=== PATIENT | female | born 1990 | race Two or more races ===

== ENCOUNTER 2016-06-19 22:55 | Inpatient (IN) | payer BC, OTHER ==
[~2016-06-19] VITALS: Ht 157.5 cm; Wt 59.0 kg
[~2016-06-19 22:55] MED LIST: HYDR-971 PO; NAPR500T8 PO; PNV1TABL25 PO
[2016-06-19 23:25] LABS: BILIRUBIN,URINE NEGATIVE (NEG); GLUCOSE,URINE NEGATIVE (NEG); NITRITE,URINE NEGATIVE (NEG); PROTEIN,URINE NEGATIVE (NEG-TRACE)
[2016-06-19 23:26] LABS: NEG OBC UR NEG; POS OBC UR POS
[2016-06-19] MEDS ORDERED: ONDANSETRON PF 4 MG/2 ML VIAL. IV ONE (23:30)
[2016-06-19] MEDS ORDERED: MORPHINE SULFATE 4 MG/ML DISP.SYRIN. IV ONE (23:30)
[2016-06-19] MEDS ORDERED: IV NORMAL SALINE 500ML BAG 500 ML IV ONE (23:30)
[2016-06-19 23:31] LABS: RBC,URINE 0 /HPF (0-2)
[2016-06-19 23:32] LABS: BACTERIA,URINE FEW /HPF (0-FEW); SQUAMOUS EPITHELIAL CELL,UR MANY /LPF; WBC,URINE 20-40 /HPF (0-4)
[2016-06-19 23:37] LABS: BASO % 1 % (0-3); EOS % 1 % (0-3); HEMATOCRIT 40.1 % (36.0-47.0); HEMOGLOBIN 13.3 g/dL (12.0-15.5); LYMPH # 1.7 x10^3/uL (1.0-4.8); LYMPH % 29 % (24-48); MEAN CORPUSCULAR HEMOGLOBIN 29 pg (25-35); MEAN CORPUSCULAR HGB CONC 33 g/dL (31-37); MEAN CORPUSCULAR VOLUME 86 fL (79-100); MONO % 10 % (0-9); NEUT % 60 % (31-73); PLATELET COUNT 362 x10^3/uL (140-400); RED BLOOD COUNT 4.67 x10^6/uL (3.50-5.40); RED CELL DISTRIBUTION WIDTH 12.7 % (11.5-14.5); WHITE BLOOD COUNT 5.8 x10^3/uL (4.0-11.0)
[2016-06-19 23:47] LABS: CALCIUM 9.2 mg/dL (8.5-10.1); CREATININE 0.4 mg/dL (0.6-1.0); GFR 196.1; POTASSIUM 3.4 mmol/L (3.5-5.1)
[2016-06-19 23:53] LABS: ALBUMIN 3.8 g/dL (3.4-5.0); TOTAL BILIRUBIN 0.6 mg/dL (0.2-1.0); TOTAL PROTEIN 7.5 g/dL (6.4-8.2)
--- NOTE | 2016-06-19 23:57 | PHYS DOC ---
Past Medical History Past Medical History: Anxiety, Other Additional Past Medical Histor: GASTRITIS Past Surgical History: No Surgical History Alcohol Use: None Drug Use: None Adult General Chief Complaint Chief Complaint: ABDOMINAL PAIN HPI HPI This is a 25-year-old female who's had significant right upper quadrant pain and mild left upper quadrant pain for the last several days with multiple episodes of vomiting today. She denies any history of abdominal surgery. She states she had a normal bowel movement yesterday. She denies being . She states her last menstrual period was on 07 June and was normal. She denies any vaginal bleeding. She denies any dysuria or hematuria. She denies any fever or chills. Currently she rates her pain an 8 out of 10 all localized primarily to the right upper quadrant. She does not state anything makes it better or worse. She denies any significant PMH. Patient is in no acute distress at this time. Review of Systems Review of Systems Constitutional: Denies fever or chills [] Eyes: Denies change in visual acuity, redness, or eye pain [] HENT: Denies nasal congestion or sore throat [] Respiratory: Denies cough or shortness of breath [] Cardiovascular: No additional information not addressed in HPI [] GI: Has abdominal pain, denies nausea, denies vomiting, denies bloody stools or diarrhea [] : Denies dysuria or hematuria [] Musculoskeletal: Denies back pain or joint pain [] Integument: Denies rash or skin lesions [] Neurologic: Denies headache, focal weakness or sensory changes [] Endocrine: Denies polyuria or polydipsia [] Current Medications Current Medications Current Medications Medications (Trade) Dose Ordered Sig/Neal Start Time Stop Time Status Last Admin Dose Admin Morphine Sulfate 4 mg 4 mg PRN Q2HR PRN 06/20/16 00:45 06/21/16 00:44 UNV Ondansetron HCl (Zofran) 4 mg PRN Q8HRS PRN 06/20/16 00:45 06/21/16 00:44 UNV Ondansetron HCl 4 mg 4 mg 1X ONCE 06/19/16 23:30 06/19/16 23:31 DC 06/19/16 23:31 4 MG Sodium Chloride (Iv Sodium Chloride 0.9% 500ml Bag) 500 ml @ 500 mls/hr 1X ONCE 06/19/16 23:30 06/20/16 00:29 DC 06/19/16 23:35 500 MLS/HR Sodium Chloride (Iv Sodium Chloride 0.9% 1000ml Bag) 1,000 ml @ 125 mls/hr Q8H 06/20/16 00:35 06/21/16 00:34 UNV Allergies Allergies Allergies Coded Allergies Type Severity Reaction Last Updated Verified No Known Drug Allergies 06/26/15 No Physical Exam Physical Exam Constitutional: Well developed, well nourished, no acute distress, non-toxic appearance. [] HENT: Normocephalic, atraumatic, bilateral external ears normal, oropharynx moist, no oral exudates, nose normal. [] Eyes: PERRLA, EOMI, conjunctiva normal, no discharge. [] Neck: Normal range of motion, no tenderness, supple, no stridor. [] Cardiovascular:Heart rate regular rhythm, no murmur [] Lungs & Thorax: Bilateral breath sounds clear to auscultation [] Abdomen: Bowel sounds normal, soft, moderate RUQ and minimal LUQ tenderness, no masses, no pulsatile masses, no rebound or guarding. [] Skin: Warm, dry, no erythema, no rash. [] Back: No tenderness, no CVA tenderness. [] Extremities: No tenderness, no cyanosis, no clubbing, ROM intact, no edema. [] Neurologic: Alert and oriented X 3, normal motor function, normal sensory function, no focal deficits noted. [] Psychologic: Affect normal, judgement normal, mood normal. [] Current Patient Data Vital Signs Vital Signs Date Time Temp Pulse Resp B/P Pulse Ox O2 Delivery O2 Flow Rate FiO2 06/19/16 23:34 18 100 Room Air 06/19/16 23:11 79 121/77 Lab Values Laboratory Tests Test 06/19/16 23:15 06/19/16 23:22 06/19/16 23:30 Urine Collection Type Unknown Urine Color Yellow Urine Clarity Cloudy Urine pH 8.0 Urine Specific [place] 1.010 Urine Protein Negativemg/dL (NEG-TRACE) Urine Glucose (UA) Negativemg/dL (NEG) Urine Ketones (Stick) Negativemg/dL (NEG) Urine Blood Negative (NEG) Urine Nitrite Negative (NEG) Urine Bilirubin Negative (NEG) Urine Urobilinogen Dipstick 1.0mg/dL (0.2 mg/dL) Urine Leukocyte Esterase Large (NEG) Urine RBC 0/HPF (0-2) Urine WBC 20-40/HPF (0-4) Urine Squamous Epithelial Cells Many/LPF Urine Amorphous Sediment Present/HPF Urine Bacteria Few/HPF (0-FEW) Urine Mucus Slight/LPF Urine Test Negative (NEG) POC Urine HCG, Qualitative Hcg negative (Negative) White Blood Count 5.8x10^3/uL (4.0-11.0) Red Blood Count 4.67x10^6/uL (3.50-5.40) Hemoglobin 13.3g/dL (12.0-15.5) Hematocrit 40.1% (36.0-47.0) Mean Corpuscular Volume 86fL (79-100) Mean Corpuscular Hemoglobin 29pg (25-35) Mean Corpuscular Hemoglobin Concent 33g/dL (31-37) Red Cell Distribution Width 12.7% (11.5-14.5) Platelet Count 362x10^3/uL (140-400) Neutrophils (%) (Auto) 60% (31-73) Lymphocytes (%) (Auto) 29% (24-48) Monocytes (%) (Auto) 10% (0-9) H Eosinophils (%) (Auto) 1% (0-3) Basophils (%) (Auto) 1% (0-3) Neutrophils # (Auto) 3.5x10^3uL (1.8-7.7) Lymphocytes # (Auto) 1.7x10^3/uL (1.0-4.8) Monocytes # (Auto) 0.6x10^3/uL (0.0-1.1) Eosinophils # (Auto) 0.0x10^3/uL (0.0-0.7) Basophils # (Auto) 0.0x10^3/uL (0.0-0.2) Sodium Level 143mmol/L (136-145) Potassium Level 3.4mmol/L (3.5-5.1) L Chloride Level 104mmol/L (98-107) Carbon Dioxide Level 29mmol/L (21-32) Anion Gap 10 (6-14) Blood Urea Nitrogen 5mg/dL (7-20) L Creatinine 0.4mg/dL (0.6-1.0) L Estimated GFR (Cockcroft-Gault) 196.1 BUN/Creatinine Ratio 13 (6-20) Glucose Level 92mg/dL (70-99) Calcium Level 9.2mg/dL (8.5-10.1) Total Bilirubin 0.6mg/dL (0.2-1.0) Aspartate Amino Transferase (AST) 334U/L (15-37) H Alanine Aminotransferase (ALT) 262U/L (14-59) H Alkaline Phosphatase 323U/L (46-116) H Total Protein 7.5g/dL (6.4-8.2) Albumin 3.8g/dL (3.4-5.0) Albumin/Globulin Ratio 1.0 (1.0-1.7) Lipase 197U/L (73-393) Acetaminophen Level < 2mcg/ml (10-30) L Acetaminophen Last Dose Date Acetaminophen Last Dose Time Laboratory Tests 06/19/16 23:30 Laboratory Tests 06/19/16 23:30 EKG EKG [] Radiology/Procedures Radiology/Procedures Abdominal ultrasound demonstrates the following: Multiple gallstones are seen as well as common bile duct dilation. Given the common bile duct dilation causes such as a distal common bile duct stone is not excluded on this exam. If further information is desired MRCP can be obtained. Course & Med Decision Making Course & Med Decision Making Pertinent Labs and Imaging studies reviewed. (See chart for details) This 25 old female with significant right upper quadrant pain will have a abdominal ultrasound rule out any gallbladder pathology. I will obtain full laboratory workup as well including a CBC, CMP, UA, and a lipase. Her laboratory workup is significant for elevated AST and ALTs as well as alkaline phosphatase. Her gallbladder ultrasound demonstrated multiple gallstones as well as common bile duct dilation. They recommend MRCP. I discussed the case with the on-call surgeon, Dr. Del Valle, who agreed to see the patient consultation with GI for likely ERCP. Case will be discussed with Dr. Tavarez and the patient will be admitted for further workup for her ongoing abdominal pain. Upon my final reassessment, the patient's pain is much improved after IV morphine and Zofran. Dragon Disclaimer Dragon Disclaimer This electronic medical record was generated, in whole or in part, using a voice recognition dictation system. Departure Departure Impression: Primary Impression: Cholelithiasis Additional Impressions: Abdominal pain Liver function test abnormality Disposition: 09 ADMITTED INPATIENT Admitting Physician: Annie Tavarez Condition: STABLE Referrals: NO PCP (PCP) Problem Qualifiers NICOLE SINGLETARY DO Jun 19, 2016 23:57
[2016-06-20] VITALS (8 sets, daily range): BP systolic 91–124; BP diastolic 54–78
--- NOTE | 2016-06-20 00:23 | RAD ---
INDICATION: Abdominal pain. COMPARISON: None TECHNIQUE: Transabdominal ultrasound images are obtained of the abdomen. FINDINGS: Gallstones are visualized Hepatic echogenicity is unremarkable. Common bile duct 11 millimeter Pancreas only partially seen but grossly unremarkable. IVC segmentally seen at liver. No right hydronephrosis. IMPRESSION: Multiple gallstones are seen as well as common bile duct dilation. Given the common bile duct dilation causes such as a distal common bile duct stone is not excluded on this exam. If further information is desired MRCP can be obtained. Electronically signed by: Hunter Michel (Jun 20, 2016 00:21:29)
[2016-06-20] MEDS: IV NORMAL SALINE 1000ML BAG 1,000 ML IV SCH ×3 (00:50→19:01)
[2016-06-20] MEDS ORDERED: ONDANSETRON PF 4 MG/2 ML VIAL. IV PRN (01:00)
[2016-06-20] MEDS ORDERED: MORPHINE SULFATE 4 MG/ML DISP.SYRIN. IV PRN (01:00)
--- NOTE | 2016-06-20 08:14 | PDOC2 ---
GEORGES MELENDEZ Isabel KNIFE GRINDER 06/20/16 0814: CONSULT Date of Consult Date of Consult DATE: 06/20/16 TIME: 08:09 Reason for Consult Reason for Consult: gallstones Referring Physician Referring Physician: ER Identification/Chief Complaint Chief Complaint abdominal pain Source Source: Chart review, Patient History of Present Illness Reason for Visit: RUQ, epigastric pain since Thursday, it progressively worsened . Emesis x 1 in ER. Pain radiates to back. No constipation or diarrhea. Aggravated by touch, improved with pain medication. Vaginal delivery 5 months ago, no history of similar pain in past Family translates for patient Past Medical History Past Medical History no pertinent hx Past Surgical History Past Surgical History: No pertinent history Family History Family History: Other (noncontributory to current illness ) Social History No ALCOHOL: none Drugs: None Lives: with Family Current Problem List Problem List Problems Medical Problems: (1) Abdominal pain Status: Acute (2) Cholelithiasis Status: Acute (3) Liver function test abnormality Status: Acute Current Medications Current Medications Current Medications Ondansetron HCl (Zofran) 4 mg 1X ONCE IV Last administered on 06/19/16 23:31 ; Start 06/19/16 at 23:30; Stop 06/19/16 at 23:31; Status DC Morphine Sulfate 4 mg 4 mg 1X ONCE IV Last administered on 06/19/16 23:34; Start 06/19/16 at 23:30; Stop 06/19/16 at 23:31; Status DC Sodium Chloride (Iv Sodium Chloride 0.9% 500ml Bag) 500 ml @ 500 mls/hr 1X ONCE IV Last administered on 06/19/16 23:35; Start 06/19/16 at 23:30; Stop at 00:29; Status DC Ondansetron HCl (Zofran) 4 mg PRN Q8HRS PRN IV NAUSEA/VOMITING; Start 06/20/16 at 01:00; Stop 06/21/16 at 00:59 Morphine Sulfate 4 mg 4 mg PRN Q2HR PRN IV PAIN; Start 06/20/16 at 01:00; Stop 06/21/16 at 00:59 Sodium Chloride (Iv Sodium Chloride 0.9% 1000ml Bag) 1,000 ml @ 125 mls/hr Q8H IV Last administered on 2/24/17at 00:50; Start 06/20/16 at 01:00; Stop at 00:59 Active Scripts Active Naproxen 500 Mg Tablet. 1 Tab PO BID [place] 5-325 Tablet (Acetaminophen/Hydrocodone Bitart) 1 Each Tablet 1 Tab PO PRN Q6HRS PRN Reported Tablet (Pnv Cmb#95/Ferrous Fumarate/Fa) 1 Each Tablet 1 Each PO DAILY Allergies Allergies: Coded Allergies: No Known Drug Allergies (Unverified , 06/20/16) ROS General: No: Chills, Other (fevers) PSYCHOLOGICAL ROS: No: Anxiety, Depression Eyes: No Blurry vision, No Double vision HEENT: No: Heacaches, Sore Throat Hematological and Lymphatic: No: Bleeding Problems, Blood Clots Respiratory: No: Cough, Shortness of breath Cardiovascular: No Chest Pain, No Palpitations Gastrointestinal: Yes Other (see hpi) Genitourinary: No Dysuria, No Hematuria Musculoskeletal: No Joint Pain, No Muscle Pain Neurological: No Numbness/Tingling, No Seizures Skin: No Pruritus, No Rash Physical Exam General: Alert, Oriented X3, Cooperative, No acute distress HEENT: PERRLA, Mucous membr. moist/pink Lungs: Clear to auscultation, Normal air movement Heart: Regular rate, Normal S1, Normal S2, No murmurs Abdomen: Soft, Other (ND, epigastric TTP) Extremities: No clubbing, No cyanosis Skin: No rashes, No breakdown Neuro: Normal speech, Sensation intact Psych/Mental Status: Mental status NL, Mood NL MUSCULOSKELETAL: No deformity, No swelling Vitals VITALS Vital Signs Date Time Temp Pulse Resp B/P Pulse Ox O2 Delivery O2 Flow Rate FiO2 06/20/16 03:00 Room Air 06/20/16 01:38 97.7 67 18 108/71 99 97.7 Labs Labs Laboratory Tests Test 06/19/16 23:15 06/19/16 23:22 06/19/16 23:30 Urine Collection Type Unknown Urine Color Yellow Urine Clarity Cloudy Urine pH 8.0 Urine Specific [place] 1.010 Urine Protein Negativemg/dL (NEG-TRACE) Urine Glucose (UA) Negativemg/dL (NEG) Urine Ketones (Stick) Negativemg/dL (NEG) Urine Blood Negative (NEG) Urine Nitrite Negative (NEG) Urine Bilirubin Negative (NEG) Urine Urobilinogen Dipstick 1.0mg/dL (0.2 mg/dL) Urine Leukocyte Esterase Large (NEG) Urine RBC 0/HPF (0-2) Urine WBC 20-40/HPF (0-4) Urine Squamous Epithelial Cells Many/LPF Urine Amorphous Sediment Present/HPF Urine Bacteria Few/HPF (0-FEW) Urine Mucus Slight/LPF Urine Test Negative (NEG) Bedside Urine HCG, Qualitative Hcg negative (Negative) White Blood Count 5.8x10^3/uL (4.0-11.0) Red Blood Count 4.67x10^6/uL (3.50-5.40) Hemoglobin 13.3g/dL (12.0-15.5) Hematocrit 40.1% (36.0-47.0) Mean Corpuscular Volume 86fL (79-100) Mean Corpuscular Hemoglobin 29pg (25-35) Mean Corpuscular Hemoglobin Concent 33g/dL (31-37) Red Cell Distribution Width 12.7% (11.5-14.5) Platelet Count 362x10^3/uL (140-400) Neutrophils (%) (Auto) 60% (31-73) Lymphocytes (%) (Auto) 29% (24-48) Monocytes (%) (Auto) 10% (0-9) Eosinophils (%) (Auto) 1% (0-3) Basophils (%) (Auto) 1% (0-3) Neutrophils # (Auto) 3.5x10^3uL (1.8-7.7) Lymphocytes # (Auto) 1.7x10^3/uL (1.0-4.8) Monocytes # (Auto) 0.6x10^3/uL (0.0-1.1) Eosinophils # (Auto) 0.0x10^3/uL (0.0-0.7) Basophils # (Auto) 0.0x10^3/uL (0.0-0.2) Sodium Level 143mmol/L (136-145) Potassium Level 3.4mmol/L (3.5-5.1) Chloride Level 104mmol/L (98-107) Carbon Dioxide Level 29mmol/L (21-32) Anion Gap 10 (6-14) Blood Urea Nitrogen 5mg/dL (7-20) Creatinine 0.4mg/dL (0.6-1.0) Estimated GFR (Cockcroft-Gault) 196.1 BUN/Creatinine Ratio 13 (6-20) Glucose Level 92mg/dL (70-99) Calcium Level 9.2mg/dL (8.5-10.1) Total Bilirubin 0.6mg/dL (0.2-1.0) Aspartate Amino Transf (AST/SGOT) 334U/L (15-37) Alanine Aminotransferase (ALT/SGPT) 262U/L (14-59) Alkaline Phosphatase 323U/L (46-116) Total Protein 7.5g/dL (6.4-8.2) Albumin 3.8g/dL (3.4-5.0) Albumin/Globulin Ratio 1.0 (1.0-1.7) Lipase 197U/L (73-393) Acetaminophen Level < 2mcg/ml (10-30) Acetaminophen Last Dose Date Acetaminophen Last Dose Time Laboratory Tests Test 06/19/16 23:15 06/19/16 23:22 06/19/16 23:30 Urine Collection Type Unknown Urine Color Yellow Urine Clarity Cloudy Urine pH 8.0 Urine Specific [place] 1.010 Urine Protein Negativemg/dL (NEG-TRACE) Urine Glucose (UA) Negativemg/dL (NEG) Urine Ketones (Stick) Negativemg/dL (NEG) Urine Blood Negative (NEG) Urine Nitrite Negative (NEG) Urine Bilirubin Negative (NEG) Urine Urobilinogen Dipstick 1.0mg/dL (0.2 mg/dL) Urine Leukocyte Esterase Large (NEG) Urine RBC 0/HPF (0-2) Urine WBC 20-40/HPF (0-4) Urine Squamous Epithelial Cells Many/LPF Urine Amorphous Sediment Present/HPF Urine Bacteria Few/HPF (0-FEW) Urine Mucus Slight/LPF Urine Test Negative (NEG) Bedside Urine HCG, Qualitative Hcg negative (Negative) White Blood Count 5.8x10^3/uL (4.0-11.0) Red Blood Count 4.67x10^6/uL (3.50-5.40) Hemoglobin 13.3g/dL (12.0-15.5) Hematocrit 40.1% (36.0-47.0) Mean Corpuscular Volume 86fL (79-100) Mean Corpuscular Hemoglobin 29pg (25-35) Mean Corpuscular Hemoglobin Concent 33g/dL (31-37) Red Cell Distribution Width 12.7% (11.5-14.5) Platelet Count 362x10^3/uL (140-400) Neutrophils (%) (Auto) 60% (31-73) Lymphocytes (%) (Auto) 29% (24-48) Monocytes (%) (Auto) 10% (0-9) Eosinophils (%) (Auto) 1% (0-3) Basophils (%) (Auto) 1% (0-3) Neutrophils # (Auto) 3.5x10^3uL (1.8-7.7) Lymphocytes # (Auto) 1.7x10^3/uL (1.0-4.8) Monocytes # (Auto) 0.6x10^3/uL (0.0-1.1) Eosinophils # (Auto) 0.0x10^3/uL (0.0-0.7) Basophils # (Auto) 0.0x10^3/uL (0.0-0.2) Sodium Level 143mmol/L (136-145) Potassium Level 3.4mmol/L (3.5-5.1) Chloride Level 104mmol/L (98-107) Carbon Dioxide Level 29mmol/L (21-32) Anion Gap 10 (6-14) Blood Urea Nitrogen 5mg/dL (7-20) Creatinine 0.4mg/dL (0.6-1.0) Estimated GFR (Cockcroft-Gault) 196.1 BUN/Creatinine Ratio 13 (6-20) Glucose Level 92mg/dL (70-99) Calcium Level 9.2mg/dL (8.5-10.1) Total Bilirubin 0.6mg/dL (0.2-1.0) Aspartate Amino Transf (AST/SGOT) 334U/L (15-37) Alanine Aminotransferase (ALT/SGPT) 262U/L (14-59) Alkaline Phosphatase 323U/L (46-116) Total Protein 7.5g/dL (6.4-8.2) Albumin 3.8g/dL (3.4-5.0) Albumin/Globulin Ratio 1.0 (1.0-1.7) Lipase 197U/L (73-393) Acetaminophen Level < 2mcg/ml (10-30) Acetaminophen Last Dose Date Acetaminophen Last Dose Time Assessment/Plan Assessment/Plan cholelithiasis, no cholecystitis on US elevated LFTS, normal bili, US with CBD dilation GI consulted repeat LFTS, await GI recs--lap tisha at some point CLIFTON WESTON MD 06/20/16 1236: CONSULT Allergies Allergies: Coded Allergies: No Known Drug Allergies (Unverified , 06/20/16) Assessment/Plan Assessment/Plan Patient seen and examined by me, somewhat sleepy due to sedation for ERCP. Mildly TTP in the epigastrium. ERCP and sphincterotomy done with sludge in the CBD, duct cleared. Will check lab, monitor for pancreatitis, plan L/S Tisha prior to D/C either this or Thursday. GEORGES MELENDEZ APRN Jun 20, 2016 08:14 CLIFTON WESTON MD Jun 20, 2016 12:36
--- NOTE | 2016-06-20 09:44 | PDOC2 ---
GI CONSULT Reason For Consult: CBD stones HPI: HPI: 25 y/o [place]-speaking female, translation help from family in room. H/o epigastric and RUQ w/ radiation around to right and central back awoke her from sleep on 06/18, continued to the next day, and is now resolved. Vomiting x 1. No fever, reflux/heratburn, diarrhea, constipation, bleeding. Bili 0.6, AST 334 , ALT 262, Alk Phos 323. US w/ cholelithiasis and CBD dilation (11mm). Similar pain in [place] once before but reports workup was negative for gallbladder disease at that time. H/o vaginal delivery 5 months ago. Surgery following. PMH: PMH: - FH: Family History: No pertinent hx Social History: Smoke: No ALCOHOL: none Drugs: None ROS: GEN: Denies fevers, chills, sweats HEENT: Denies blurred vision, sore throat CV: Denies chest pain RESP: Denies shortness of air, cough GI: Per HPI : Denies hematuria, dysuria ENDO: Denies weight changes NEURO: Denies confusion, dizziness MSK: Denies weakness, joint pain/swelling SKIN: Denies jaundice, pruritus VItals: Vitals: Vital Signs Date Time Temp Pulse Resp B/P Pulse Ox O2 Delivery O2 Flow Rate FiO2 06/20/16 07:00 96.4 57 18 91/54 100 96.4 06/20/16 03:00 Room Air Labs: Labs: Laboratory Tests Test 06/19/16 23:15 06/19/16 23:22 06/19/16 23:30 Urine Collection Type Unknown Urine Color Yellow Urine Clarity Cloudy Urine pH 8.0 Urine Specific [place] 1.010 Urine Protein Negativemg/dL (NEG-TRACE) Urine Glucose (UA) Negativemg/dL (NEG) Urine Ketones (Stick) Negativemg/dL (NEG) Urine Blood Negative (NEG) Urine Nitrite Negative (NEG) Urine Bilirubin Negative (NEG) Urine Urobilinogen Dipstick 1.0mg/dL (0.2 mg/dL) Urine Leukocyte Esterase Large (NEG) Urine RBC 0/HPF (0-2) Urine WBC 20-40/HPF (0-4) Urine Squamous Epithelial Cells Many/LPF Urine Amorphous Sediment Present/HPF Urine Bacteria Few/HPF (0-FEW) Urine Mucus Slight/LPF Urine Test Negative (NEG) Bedside Urine HCG, Qualitative Hcg negative (Negative) White Blood Count 5.8x10^3/uL (4.0-11.0) Red Blood Count 4.67x10^6/uL (3.50-5.40) Hemoglobin 13.3g/dL (12.0-15.5) Hematocrit 40.1% (36.0-47.0) Mean Corpuscular Volume 86fL (79-100) Mean Corpuscular Hemoglobin 29pg (25-35) Mean Corpuscular Hemoglobin Concent 33g/dL (31-37) Red Cell Distribution Width 12.7% (11.5-14.5) Platelet Count 362x10^3/uL (140-400) Neutrophils (%) (Auto) 60% (31-73) Lymphocytes (%) (Auto) 29% (24-48) Monocytes (%) (Auto) 10% (0-9) Eosinophils (%) (Auto) 1% (0-3) Basophils (%) (Auto) 1% (0-3) Neutrophils # (Auto) 3.5x10^3uL (1.8-7.7) Lymphocytes # (Auto) 1.7x10^3/uL (1.0-4.8) Monocytes # (Auto) 0.6x10^3/uL (0.0-1.1) Eosinophils # (Auto) 0.0x10^3/uL (0.0-0.7) Basophils # (Auto) 0.0x10^3/uL (0.0-0.2) Sodium Level 143mmol/L (136-145) Potassium Level 3.4mmol/L (3.5-5.1) Chloride Level 104mmol/L (98-107) Carbon Dioxide Level 29mmol/L (21-32) Anion Gap 10 (6-14) Blood Urea Nitrogen 5mg/dL (7-20) Creatinine 0.4mg/dL (0.6-1.0) Estimated GFR (Cockcroft-Gault) 196.1 BUN/Creatinine Ratio 13 (6-20) Glucose Level 92mg/dL (70-99) Calcium Level 9.2mg/dL (8.5-10.1) Total Bilirubin 0.6mg/dL (0.2-1.0) Aspartate Amino Transf (AST/SGOT) 334U/L (15-37) Alanine Aminotransferase (ALT/SGPT) 262U/L (14-59) Alkaline Phosphatase 323U/L (46-116) Total Protein 7.5g/dL (6.4-8.2) Albumin 3.8g/dL (3.4-5.0) Albumin/Globulin Ratio 1.0 (1.0-1.7) Lipase 197U/L (73-393) Acetaminophen Level < 2mcg/ml (10-30) Acetaminophen Last Dose Date Acetaminophen Last Dose Time Allergies: Coded Allergies: No Known Drug Allergies (Unverified , 06/26/15) Medications: Current Medications Medications (Trade) Dose Ordered Sig/Neal Route PRN Reason Start Time Stop Time Status Last Admin Dose Admin Ondansetron HCl (Zofran) 4 mg 1X ONCE IV 06/19/16 23:30 06/19/16 23:31 DC 06/19/16 23:31 Morphine Sulfate 4 mg 4 mg 1X ONCE IV 06/19/16 23:30 06/19/16 23:31 DC 06/19/16 23:34 Sodium Chloride 500 ml @ 500 mls/hr 1X ONCE IV 06/19/16 23:30 06/20/16 00:29 DC 06/19/16 23:35 Sodium Chloride (Iv Sodium Chloride 0.9% 1000ml Bag) 1,000 ml @ 125 mls/hr Q8H IV 06/20/16 01:00 06/21/16 00:59 06/20/16 00:50 Imaging: Imaging: Abd US 06/19/16 FINDINGS: Gallstones are visualized Hepatic echogenicity is unremarkable. Common bile duct 11 millimeter Pancreas only partially seen but grossly unremarkable. IVC segmentally seen at liver. No right hydronephrosis. IMPRESSION: Multiple gallstones are seen as well as common bile duct dilation. Given the common bile duct dilation causes such as a distal common bile duct stone is not excluded on this exam. If further information is desired MRCP can be obtained. PE: GEN: NAD HEENT: Atraumatic, PERRL LUNGS: CTAB HEART: RRR ABD: NABS, S/ND, mild epigastric tenderness EXTREMITY: No edema SKIN: No rashes, no jaundice NEURO/PSYCH: A & O 3 A/P: A/P: RUQ, epigastric pain w/ vomiting -onset 06/18 during sleep, radiation to back Cholelithiasis, dilated CBD, elevated LFTs -- ERCP this morning w/ possible sphincterotomy/stone extraction. Cholecystectomy eventually. SILVIA DRAKE Jun 20, 2016 09:44
[2016-06-20] MEDS: IV RINGERS,LACTATED 1000ML 1,000 ML IV SCH ×2 (10:11→19:03)
[2016-06-20] MEDS ORDERED: FENTANYL PF 100 MCG/2 ML VIAL. ONE (10:15)
[2016-06-20] MEDS ORDERED: LIDOCAINE 2% PF Vial for OR 5 ML VIAL. ONE (10:15)
[2016-06-20] MEDS ORDERED: SUCCINYLCHOLINE 200 MG/10 ML VIAL. ONE (10:15)
[2016-06-20] MEDS ORDERED: PROPOFOL 20 ML IV ONE (10:15)
[2016-06-20 10:29] LABS: DIRECT BILIRUBIN 0.1 mg/dL (0.0-0.2); TOTAL BILIRUBIN 0.4 mg/dL (0.2-1.0); TOTAL PROTEIN 6.3 g/dL (6.4-8.2)
[2016-06-20] MEDS ORDERED: IOHEXOL 300 MG/ML 50 ML VIAL. ONE (10:33)
[2016-06-20] MEDS ORDERED: IOHEXOL 300 MG/ML 50 ML VIAL. IV ONE (11:11)
--- NOTE | 2016-06-20 11:19 | PDOC4 ---
Operative Note Operative Note ERCP with sphincterotomy/sludge extraction Hilton AREVALO Pre-op dx abnl US/cholelithiasis/increased LFTS post-op dx choledocholithiasis S/p sphincterotomy/stone /sludge extraction Plan resume liquids labs in am possible lap serina prior to release NICOLE DE LA ROSA MD Jun 20, 2016 11:19
--- NOTE | 2016-06-20 12:30 | PDOC ---
PROGRESS NOTES Chief Complaint Chief Complaint Cholelithiasis ASSESSMENT AND PLAN: 1. Cholelithiasis: s/p ERCP w/ sphincterotomy today. poss CCY in near future 2. Transaminitis: unchanged. most likely 2/2 to above. 3. UTI: awaiting cult and sensitivity. empiric ceftriax Vitals Vitals Vital Signs Date Time Temp Pulse Resp B/P Pulse Ox O2 Delivery O2 Flow Rate FiO2 06/20/16 11:54 77 20 133/81 99 06/20/16 11:25 98.1 Simple Mask 7.0 98.1 Physical Exam General: Alert, Oriented X3, Cooperative, No acute distress Heart: Regular rate, Normal S1, Normal S2, No murmurs Abdomen: Soft, Other (RUQ/epigastric TTP) Extremities: No clubbing, No cyanosis Skin: No rashes, No breakdown Labs LABS Laboratory Tests Test 06/19/16 23:15 06/19/16 23:22 06/19/16 23:30 06/20/16 09:05 Urine Collection Type Unknown Urine Color Yellow Urine Clarity Cloudy Urine pH 8.0 Urine Specific [place] 1.010 Urine Protein Negativemg/dL (NEG-TRACE) Urine Glucose (UA) Negativemg/dL (NEG) Urine Ketones (Stick) Negativemg/dL (NEG) Urine Blood Negative (NEG) Urine Nitrite Negative (NEG) Urine Bilirubin Negative (NEG) Urine Urobilinogen Dipstick 1.0mg/dL (0.2 mg/dL) Urine Leukocyte Esterase Large (NEG) Urine RBC 0/HPF (0-2) Urine WBC 20-40/HPF (0-4) Urine Squamous Epithelial Cells Many/LPF Urine Amorphous Sediment Present/HPF Urine Bacteria Few/HPF (0-FEW) Urine Mucus Slight/LPF Urine Test Negative (NEG) Bedside Urine HCG, Qualitative Hcg negative (Negative) White Blood Count 5.8x10^3/uL (4.0-11.0) Red Blood Count 4.67x10^6/uL (3.50-5.40) Hemoglobin 13.3g/dL (12.0-15.5) Hematocrit 40.1% (36.0-47.0) Mean Corpuscular Volume 86fL (79-100) Mean Corpuscular Hemoglobin 29pg (25-35) Mean Corpuscular Hemoglobin Concent 33g/dL (31-37) Red Cell Distribution Width 12.7% (11.5-14.5) Platelet Count 362x10^3/uL (140-400) Neutrophils (%) (Auto) 60% (31-73) Lymphocytes (%) (Auto) 29% (24-48) Monocytes (%) (Auto) 10% (0-9) Eosinophils (%) (Auto) 1% (0-3) Basophils (%) (Auto) 1% (0-3) Neutrophils # (Auto) 3.5x10^3uL (1.8-7.7) Lymphocytes # (Auto) 1.7x10^3/uL (1.0-4.8) Monocytes # (Auto) 0.6x10^3/uL (0.0-1.1) Eosinophils # (Auto) 0.0x10^3/uL (0.0-0.7) Basophils # (Auto) 0.0x10^3/uL (0.0-0.2) Sodium Level 143mmol/L (136-145) Potassium Level 3.4mmol/L (3.5-5.1) Chloride Level 104mmol/L (98-107) Carbon Dioxide Level 29mmol/L (21-32) Anion Gap 10 (6-14) Blood Urea Nitrogen 5mg/dL (7-20) Creatinine 0.4mg/dL (0.6-1.0) Estimated GFR (Cockcroft-Gault) 196.1 BUN/Creatinine Ratio 13 (6-20) Glucose Level 92mg/dL (70-99) Calcium Level 9.2mg/dL (8.5-10.1) Total Bilirubin 0.6mg/dL (0.2-1.0) 0.4mg/dL (0.2-1.0) Aspartate Amino Transf (AST/SGOT) 334U/L (15-37) 313U/L (15-37) Alanine Aminotransferase (ALT/SGPT) 262U/L (14-59) 353U/L (14-59) Alkaline Phosphatase 323U/L (46-116) 318U/L (46-116) Total Protein 7.5g/dL (6.4-8.2) 6.3g/dL (6.4-8.2) Albumin 3.8g/dL (3.4-5.0) 3.0g/dL (3.4-5.0) Albumin/Globulin Ratio 1.0 (1.0-1.7) Lipase 197U/L (73-393) Acetaminophen Level < 2mcg/ml (10-30) Acetaminophen Last Dose Date Acetaminophen Last Dose Time Direct Bilirubin 0.1mg/dL (0.0-0.2) Review of Systems Review of Systems mild RUQ pain, worse since ERCP, same in quality as at original presentation Comment Review of Relevant HANS MONREAL MD Jun 20, 2016 12:29
--- NOTE | 2016-06-20 12:51 | RAD ---
ERCP, 06/20/2016: History: Cholelithiasis, abdominal pain 6 spot films from an ERCP performed by Dr. Julien are presented for review. 1.32 minutes of fluoroscopy time was utilized. The biliary system was partially opacified via endoscopically placed cannula. The common hepatic duct is mildly dilated. The common bile duct is within normal limits in size. No definite intraluminal filling defect is seen on the initial images. Reportedly a sphincterotomy was performed with balloon sweeping of the duct. A lucency in the distal common bile duct seen on only the last image is likely an air bubble.
[2016-06-20] MEDS: CEFTRIAXONE SODIUM 1 GM in IV NORMAL SALINE 50ML 50 ML IV SCH (14:15)
--- NOTE | 2016-06-20 22:15 | ACF ---
Admission Forms Criteria GALLBLADDER OR BILE DUCT INFLAMMATION OR STONE Clinical Indications for Admission to Inpatient Care ( Place 'X' for any and all applicable criteria): Admission is indicated for patients with ANY ONE of the following(1)(2)(3)(4)(5) : [ ]I. Acute cholecystitis as indicated by ALL of the following: [ ]a) Right upper quadrant pain, mass, or tenderness [ ]b) Systemic signs of inflammation indicated by ANY ONE of the following: [ ]i) Fever [ ]ii) C-reactive protein level greater than 10 mg/L (95 nmol/L) [ ]iii) White blood cell count greater than 10,000/mm3 (10 x109/L) or less than 4000/mm3 (4 x109/L) [X]II. Inpatient admission required rather than observation care (Also use Gallbladder or Bile Duct Inflammation or Stone: Observation Care as appropriate) because of ANY ONE of the following: [ ]a) Common bile duct obstruction diagnosed [ ]b) Vomiting that is severe or persistent [X]c) Severe pain requiring acute inpatient management [ ]d) Signs of intestinal obstruction or peritonitis [A] [ ]e) Severe electrolyte abnormalities requiring inpatient care [ ]f) Absent bowel sounds with complete ileus(8) [ ]g) Hemodynamic instability [ ]h) High fever or infection requiring inpatient admission as indicated by ANY ONE of the following (9): [ ]1) Appropriate outpatient or observation care antimicrobial Treatment. unavailable, not effective, or not feasible [ ]2) Temperature greater than 104.9 degrees F (40.5 degrees C) (oral) [ ]3) Temperature greater than 103.1 degrees F (39.5 degrees C) (oral) or less than 96.8 degrees F (36 degrees C) (rectal) that does not respond to all emergency treatment measures [ ]4) Documented bacteremia [ ]i) IV fluid to replace significant ongoing losses (greater than 3 L/m2 per day) [ ]j) Percutaneous or open drainage (eg, abscess, biliary tract) procedures [ ]k) Immediate inpatient surgery [ ]l) Other condition, treatment or monitoring requiring inpatient admission [ ]III. Acute cholangitis as indicated by ALL of the following(9)(10): [ ]a) Systemic signs of inflammation indicated by ANY ONE of the following: [ ]i) Fever [ ]ii) C-reactive protein level greater than 10 mg/L (95 nmol /L) [ ]iii) White blood cell count greater than 10,000/mm3 (10 x109/L) or less than 4000/mm3 (4 x109/L) [ ]b) Evidence of common bile duct disease indicated by ANY ONE of the following: [ ]i) Total serum bilirubin level greater than or equal to 2 mg/dL (34 micromoles/L) [ ]ii) Liver function test (alkaline phosphatase (ALP), r- glutamyltransferase (GGT), aspartate aminotransferase (AST), or alanine aminotransferase (ALT)) greater than 1.5 times the upper limit of normal[B] [ ]iii) Hepatobiliary imaging showing biliary dilatation or evidence of etiology (eg, stricture, stone, previously placed stent) Extended stay beyond goal length of stay may be needed for (1)(2)): [ ]a) Bacteremia or Hemodynamic instability [ ]b) Cholecystectomy [ ]c) Other surgical procedure(24) [ ]d) Percutaneous or endoscopic ultrasound-guided cholecystostomy The original [facility] content created by [facility] has been revised. The portions of the content which have been revised are identified through the use of italic text or in bold, and [facility] has neither reviewed nor approved the modified material. All other unmodified content is copyright [facility]. Please see references footnoted in the original [facility] edition 2016 Admission Criteria Met?: Yes AASHISH GONZALEZ Jun 20, 2016 22:15
[2016-06-21] VITALS (7 sets, daily range): BP systolic 98–123; BP diastolic 49–82
[2016-06-21 05:14] LABS: BASO % 0 % (0-3); EOS % 1 % (0-3); HEMATOCRIT 38.4 % (36.0-47.0); HEMOGLOBIN 12.8 g/dL (12.0-15.5); LYMPH # 2.3 x10^3/uL (1.0-4.8); LYMPH % 48 % (24-48); MEAN CORPUSCULAR HEMOGLOBIN 29 pg (25-35); MEAN CORPUSCULAR HGB CONC 33 g/dL (31-37); MEAN CORPUSCULAR VOLUME 86 fL (79-100); MONO % 7 % (0-9); NEUT % 44 % (31-73); PLATELET COUNT 344 x10^3/uL (140-400); RED BLOOD COUNT 4.47 x10^6/uL (3.50-5.40); WHITE BLOOD COUNT 4.8 x10^3/uL (4.0-11.0)
[2016-06-21 05:22] LABS: ALBUMIN 3.1 g/dL (3.4-5.0); ALBUMIN/GLOBULIN RATIO 0.9 (1.0-1.7); CALCIUM 8.6 mg/dL (8.5-10.1); CREATININE 0.4 mg/dL (0.6-1.0); GFR 196.1; POTASSIUM 3.4 mmol/L (3.5-5.1); TOTAL BILIRUBIN 0.4 mg/dL (0.2-1.0); TOTAL PROTEIN 6.5 g/dL (6.4-8.2)
[2016-06-21] MEDS ORDERED: IOHEXOL 300 MG/ML 50 ML VIAL. ONE (07:32)
[2016-06-21] MEDS ORDERED: BUPIVAC MPF-EPI 0.5%-1:200000 30 ML VIAL. ONE (07:32)
[2016-06-21] MEDS ORDERED: BISACODYL 10 MG SUPP.RECT ONE (07:33)
[2016-06-21] MEDS ORDERED: HEPARIN for IV BOLUS 10,000 UNIT/10 ML VIAL. ONE (07:33)
[2016-06-21] MEDS ORDERED: SURGICEL HEMOSTAT 2X3 EACH. ONE (07:33)
[2016-06-21] MEDS ORDERED: CEFAZOLIN 2GM PREMIX 50 ML IV SCH (07:45)
[2016-06-21] MEDS ORDERED: IV RINGERS,LACTATED 1000ML 1,000 ML IV SCH (08:46)
[2016-06-21] MEDS ORDERED: PROCHLORPERAZINE 10 MG/2 ML VIAL. IV PRN (09:00)
[2016-06-21] MEDS ORDERED: MORPHINE SULFATE 2 MG/ML DISP.SYRIN. IV PRN (09:00)
[2016-06-21] MEDS ORDERED: FENTANYL PF 100 MCG/2 ML VIAL. IV PRN (09:00)
[2016-06-21] MEDS ORDERED: ONDANSETRON PF 4 MG/2 ML VIAL. IV PRN ×2 (09:00→10:30)
[2016-06-21] MEDS ORDERED: HYDROMORPHONE 2 MG/ML VIAL. IV PRN (09:00)
[2016-06-21] MEDS ORDERED: LIDOCAINE 1% 1 ML SYRINGE. ID PRN (09:00)
[2016-06-21] MEDS ORDERED: LIDOCAINE 2% 100 MG/5 ML DISP.SYRIN. ONE (09:02)
[2016-06-21] MEDS ORDERED: SUCCINYLCHOLINE 200 MG/10 ML VIAL. ONE (09:02)
[2016-06-21] MEDS ORDERED: FENTANYL PF 100 MCG/2 ML VIAL. ONE (09:02)
[2016-06-21] MEDS ORDERED: PROPOFOL 20 ML IV ONE (09:02)
[2016-06-21] MEDS ORDERED: ROCURONIUM 50 MG/5 ML VIAL. ONE (09:03)
--- NOTE | 2016-06-21 09:16 | PDOC ---
SURGICAL PROGRESS NOTE Subjective Pre-Op Note 25 yo F with symptomatic cholelithiasis s/p ERCP and sphinterotomy TO OR for lap serina with grams R/B/A d/w pt and pt's Vital Signs Vital Signs Date Time Temp Pulse Resp B/P Pulse Ox O2 Delivery O2 Flow Rate FiO2 06/21/16 09:10 97.1 84 15 124/64 100 Room Air 97.1 06/20/16 11:25 7.0 I&O Intake and Output 06/21/16 07:00 Intake Total 1150 ml Output Total 500 ml Balance 650 ml Intake Oral 200 ml IV Total 950 ml Output Urine Total 500 ml Labs Laboratory Tests Test 06/19/16 23:15 06/19/16 23:22 06/19/16 23:30 06/20/16 09:05 Urine Collection Type Unknown Urine Color Yellow Urine Clarity Cloudy Urine pH 8.0 Urine Specific [place] 1.010 Urine Protein Negativemg/dL (NEG-TRACE) Urine Glucose (UA) Negativemg/dL (NEG) Urine Ketones (Stick) Negativemg/dL (NEG) Urine Blood Negative (NEG) Urine Nitrite Negative (NEG) Urine Bilirubin Negative (NEG) Urine Urobilinogen Dipstick 1.0mg/dL (0.2 mg/dL) Urine Leukocyte Esterase Large (NEG) Urine RBC 0/HPF (0-2) Urine WBC 20-40/HPF (0-4) Urine Squamous Epithelial Cells Many/LPF Urine Amorphous Sediment Present/HPF Urine Bacteria Few/HPF (0-FEW) Urine Mucus Slight/LPF Urine Test Negative (NEG) Bedside Urine HCG, Qualitative Hcg negative (Negative) White Blood Count 5.8x10^3/uL (4.0-11.0) Red Blood Count 4.67x10^6/uL (3.50-5.40) Hemoglobin 13.3g/dL (12.0-15.5) Hematocrit 40.1% (36.0-47.0) Mean Corpuscular Volume 86fL (79-100) Mean Corpuscular Hemoglobin 29pg (25-35) Mean Corpuscular Hemoglobin Concent 33g/dL (31-37) Red Cell Distribution Width 12.7% (11.5-14.5) Platelet Count 362x10^3/uL (140-400) Neutrophils (%) (Auto) 60% (31-73) Lymphocytes (%) (Auto) 29% (24-48) Monocytes (%) (Auto) 10% (0-9) Eosinophils (%) (Auto) 1% (0-3) Basophils (%) (Auto) 1% (0-3) Neutrophils # (Auto) 3.5x10^3uL (1.8-7.7) Lymphocytes # (Auto) 1.7x10^3/uL (1.0-4.8) Monocytes # (Auto) 0.6x10^3/uL (0.0-1.1) Eosinophils # (Auto) 0.0x10^3/uL (0.0-0.7) Basophils # (Auto) 0.0x10^3/uL (0.0-0.2) Sodium Level 143mmol/L (136-145) Potassium Level 3.4mmol/L (3.5-5.1) Chloride Level 104mmol/L (98-107) Carbon Dioxide Level 29mmol/L (21-32) Anion Gap 10 (6-14) Blood Urea Nitrogen 5mg/dL (7-20) Creatinine 0.4mg/dL (0.6-1.0) Estimated GFR (Cockcroft-Gault) 196.1 BUN/Creatinine Ratio 13 (6-20) Glucose Level 92mg/dL (70-99) Calcium Level 9.2mg/dL (8.5-10.1) Total Bilirubin 0.6mg/dL (0.2-1.0) 0.4mg/dL (0.2-1.0) Aspartate Amino Transf (AST/SGOT) 334U/L (15-37) 313U/L (15-37) Alanine Aminotransferase (ALT/SGPT) 262U/L (14-59) 353U/L (14-59) Alkaline Phosphatase 323U/L (46-116) 318U/L (46-116) Total Protein 7.5g/dL (6.4-8.2) 6.3g/dL (6.4-8.2) Albumin 3.8g/dL (3.4-5.0) 3.0g/dL (3.4-5.0) Albumin/Globulin Ratio 1.0 (1.0-1.7) Lipase 197U/L (73-393) Acetaminophen Level < 2mcg/ml (10-30) Acetaminophen Last Dose Date Acetaminophen Last Dose Time Direct Bilirubin 0.1mg/dL (0.0-0.2) Test 06/21/16 04:25 White Blood Count 4.8x10^3/uL (4.0-11.0) Red Blood Count 4.47x10^6/uL (3.50-5.40) Hemoglobin 12.8g/dL (12.0-15.5) Hematocrit 38.4% (36.0-47.0) Mean Corpuscular Volume 86fL (79-100) Mean Corpuscular Hemoglobin 29pg (25-35) Mean Corpuscular Hemoglobin Concent 33g/dL (31-37) Red Cell Distribution Width 13.0% (11.5-14.5) Platelet Count 344x10^3/uL (140-400) Neutrophils (%) (Auto) 44% (31-73) Lymphocytes (%) (Auto) 48% (24-48) Monocytes (%) (Auto) 7% (0-9) Eosinophils (%) (Auto) 1% (0-3) Basophils (%) (Auto) 0% (0-3) Neutrophils # (Auto) 2.1x10^3uL (1.8-7.7) Lymphocytes # (Auto) 2.3x10^3/uL (1.0-4.8) Monocytes # (Auto) 0.3x10^3/uL (0.0-1.1) Eosinophils # (Auto) 0.1x10^3/uL (0.0-0.7) Basophils # (Auto) 0.0x10^3/uL (0.0-0.2) Sodium Level 142mmol/L (136-145) Potassium Level 3.4mmol/L (3.5-5.1) Chloride Level 107mmol/L (98-107) Carbon Dioxide Level 26mmol/L (21-32) Anion Gap 9 (6-14) Blood Urea Nitrogen 3mg/dL (7-20) Creatinine 0.4mg/dL (0.6-1.0) Estimated GFR (Cockcroft-Gault) 196.1 BUN/Creatinine Ratio 8 (6-20) Glucose Level 81mg/dL (70-99) Calcium Level 8.6mg/dL (8.5-10.1) Total Bilirubin 0.4mg/dL (0.2-1.0) Aspartate Amino Transf (AST/SGOT) 248U/L (15-37) Alanine Aminotransferase (ALT/SGPT) 403U/L (14-59) Alkaline Phosphatase 387U/L (46-116) Total Protein 6.5g/dL (6.4-8.2) Albumin 3.1g/dL (3.4-5.0) Albumin/Globulin Ratio 0.9 (1.0-1.7) Amylase Level 34U/L (25-115) Lipase 99U/L (73-393) Laboratory Tests Test 06/21/16 04:25 White Blood Count 4.8x10^3/uL (4.0-11.0) Red Blood Count 4.47x10^6/uL (3.50-5.40) Hemoglobin 12.8g/dL (12.0-15.5) Hematocrit 38.4% (36.0-47.0) Mean Corpuscular Volume 86fL (79-100) Mean Corpuscular Hemoglobin 29pg (25-35) Mean Corpuscular Hemoglobin Concent 33g/dL (31-37) Red Cell Distribution Width 13.0% (11.5-14.5) Platelet Count 344x10^3/uL (140-400) Neutrophils (%) (Auto) 44% (31-73) Lymphocytes (%) (Auto) 48% (24-48) Monocytes (%) (Auto) 7% (0-9) Eosinophils (%) (Auto) 1% (0-3) Basophils (%) (Auto) 0% (0-3) Neutrophils # (Auto) 2.1x10^3uL (1.8-7.7) Lymphocytes # (Auto) 2.3x10^3/uL (1.0-4.8) Monocytes # (Auto) 0.3x10^3/uL (0.0-1.1) Eosinophils # (Auto) 0.1x10^3/uL (0.0-0.7) Basophils # (Auto) 0.0x10^3/uL (0.0-0.2) Sodium Level 142mmol/L (136-145) Potassium Level 3.4mmol/L (3.5-5.1) Chloride Level 107mmol/L (98-107) Carbon Dioxide Level 26mmol/L (21-32) Anion Gap 9 (6-14) Blood Urea Nitrogen 3mg/dL (7-20) Creatinine 0.4mg/dL (0.6-1.0) Estimated GFR (Cockcroft-Gault) 196.1 BUN/Creatinine Ratio 8 (6-20) Glucose Level 81mg/dL (70-99) Calcium Level 8.6mg/dL (8.5-10.1) Total Bilirubin 0.4mg/dL (0.2-1.0) Aspartate Amino Transf (AST/SGOT) 248U/L (15-37) Alanine Aminotransferase (ALT/SGPT) 403U/L (14-59) Alkaline Phosphatase 387U/L (46-116) Total Protein 6.5g/dL (6.4-8.2) Albumin 3.1g/dL (3.4-5.0) Albumin/Globulin Ratio 0.9 (1.0-1.7) Amylase Level 34U/L (25-115) Lipase 99U/L (73-393) Problem List Problems Medical Problems: (1) Abdominal pain Status: Acute (2) Cholelithiasis Status: Acute (3) Liver function test abnormality Status: Acute Problems: VINEET CASTANEDA MD Jun 21, 2016 09:16
[2016-06-21] MEDS ORDERED: DEXAMETHASONE SOD PHOS 20 MG/5 ML VIAL. ONE (09:55)
[2016-06-21] MEDS ORDERED: DESFLURANE 31 TO 60 MINUTES IH ONE (09:55)
[2016-06-21] MEDS ORDERED: ONDANSETRON PF 4 MG/2 ML VIAL. ONE (09:55)
[2016-06-21] MEDS ORDERED: NEOSTIGMINE METHYLSULFATE 5 MG/5 ML SYRINGE. ONE (09:56)
[2016-06-21] MEDS ORDERED: GLYCOPYRROLATE 1 MG/5 ML VIAL. ONE (09:56)
--- NOTE | 2016-06-21 10:22 | RAD ---
Intraoperative cholangiogram, 06/21/2016: History: Cholecystectomy. A single spot films from surgery is present for review. 6 seconds of fluoroscopy time was utilized. Contrast has been injected into the cystic duct remnant. The common bile duct is at the upper limits of normal in size. There is good flow of contrast into the duodenum at the ampulla. No filling defect is seen in the common duct to suggest a retained calculus. The intrahepatic ducts were not delineated on this image.
--- NOTE | 2016-06-21 10:28 | PDOC ---
BRIEF OPERATIVE NOTE Pre-Op Diagnosis Symptomatic cholelithiasis Post-Op Diagnosis same Procedure Performed Lap serina with grams Surgeon Aurea Anesthesia Type: General, Local Blood Loss 5 IV Fluid 500 Specimens Obtained GB Findings wnl IOC Complications none VINEET CASTANEDA MD Jun 21, 2016 10:28
[2016-06-21] MEDS ORDERED: 0.9 % SODIUM CHLORIDE 10 ML DISP.SYRIN. IV PRN (10:30)
[2016-06-21] MEDS ORDERED: DEXTROSE 50% 25 GM / 50ML DISP.SYRIN. IV PRN (10:30)
[2016-06-21] MEDS: KETOROLAC TROMETHAMINE 30 MG/ML SYRINGE. IV PRN ×2 (10:41→16:25)
[2016-06-21] MEDS: FENTANYL PF 100 MCG/2 ML VIAL. IV PRN ×2 (10:42→11:11)
[2016-06-21] MEDS: DOCUSATE SODIUM 100 MG CAPSULE PO SCH ×2 (11:22→20:33)
[2016-06-21] MEDS: HYDROCODONE/APAP 5/325MG TABLET. PO PRN ×2 (11:23→16:25)
[2016-06-21] MEDS: IV RINGERS,LACTATED 1000ML 1,000 ML IV SCH (11:24)
[2016-06-21] MEDS: CEFTRIAXONE SODIUM 1 GM in IV NORMAL SALINE 50ML 50 ML IV SCH (12:21)
--- NOTE | 2016-06-21 17:15 | PDOC ---
GI PROGRESS NOTES Date Date/Time DATE: 06/21/16 TIME: 17:13 Subjective Subjective post op lap serina and ERCP Objective Vitals Vital Signs Date Time Temp Pulse Resp B/P Pulse Ox O2 Delivery O2 Flow Rate FiO2 06/21/16 16:25 16 99 Room Air 06/21/16 12:23 16 99 Room Air 06/21/16 12:00 67 122/82 06/21/16 11:45 70 115/72 06/21/16 11:45 63 119/81 06/21/16 11:41 16 Room Air 06/21/16 11:30 97.6 67 16 122/82 Room Air 97.6 06/21/16 11:23 16 99 Room Air 06/21/16 11:12 99 06/21/16 11:11 20 99 Room Air 06/21/16 11:05 73 20 126/73 97 Room Air 06/21/16 10:50 98.0 78 20 126/73 99 Room Air 98.0 06/21/16 10:47 77 20 143/84 100 Simple Mask 10 06/21/16 10:42 20 100 Simple Mask 10.0 06/21/16 10:35 Mask 10 06/21/16 10:35 98.0 78 20 149/91 100 Simple Mask 10 98.0 06/21/16 09:10 97.1 84 15 124/64 100 Room Air 97.1 06/21/16 08:00 Room Air 06/21/16 07:00 97.5 72 18 98/49 98 Room Air 97.5 06/21/16 03:23 Room Air 06/20/16 23:25 97.5 70 16 108/63 100 Room Air 97.5 06/20/16 20:00 Room Air 06/20/16 19:20 96.8 75 16 108/74 100 Room Air 96.8 Labs Labs Laboratory Tests Test 06/21/16 04:25 White Blood Count 4.8x10^3/uL (4.0-11.0) Red Blood Count 4.47x10^6/uL (3.50-5.40) Hemoglobin 12.8g/dL (12.0-15.5) Hematocrit 38.4% (36.0-47.0) Mean Corpuscular Volume 86fL (79-100) Mean Corpuscular Hemoglobin 29pg (25-35) Mean Corpuscular Hemoglobin Concent 33g/dL (31-37) Red Cell Distribution Width 13.0% (11.5-14.5) Platelet Count 344x10^3/uL (140-400) Neutrophils (%) (Auto) 44% (31-73) Lymphocytes (%) (Auto) 48% (24-48) Monocytes (%) (Auto) 7% (0-9) Eosinophils (%) (Auto) 1% (0-3) Basophils (%) (Auto) 0% (0-3) Neutrophils # (Auto) 2.1x10^3uL (1.8-7.7) Lymphocytes # (Auto) 2.3x10^3/uL (1.0-4.8) Monocytes # (Auto) 0.3x10^3/uL (0.0-1.1) Eosinophils # (Auto) 0.1x10^3/uL (0.0-0.7) Basophils # (Auto) 0.0x10^3/uL (0.0-0.2) Sodium Level 142mmol/L (136-145) Potassium Level 3.4mmol/L (3.5-5.1) Chloride Level 107mmol/L (98-107) Carbon Dioxide Level 26mmol/L (21-32) Anion Gap 9 (6-14) Blood Urea Nitrogen 3mg/dL (7-20) Creatinine 0.4mg/dL (0.6-1.0) Estimated GFR (Cockcroft-Gault) 196.1 BUN/Creatinine Ratio 8 (6-20) Glucose Level 81mg/dL (70-99) Calcium Level 8.6mg/dL (8.5-10.1) Total Bilirubin 0.4mg/dL (0.2-1.0) Aspartate Amino Transf (AST/SGOT) 248U/L (15-37) Alanine Aminotransferase (ALT/SGPT) 403U/L (14-59) Alkaline Phosphatase 387U/L (46-116) Total Protein 6.5g/dL (6.4-8.2) Albumin 3.1g/dL (3.4-5.0) Albumin/Globulin Ratio 0.9 (1.0-1.7) Amylase Level 34U/L (25-115) Lipase 99U/L (73-393) Physical Exam Physical Exam resting chest- clear abd- post op Assessment Assessment abd lfts with cholecystitis and CBD stones- s/p ERCP yesterday and lap serina today Problems: Plan Plan diet per surgery recommendations if further pain, recheck lfts and lipase if improved, d/c soon per surgery recommendations CORINNE SOMMER MD Jun 21, 2016 17:15
--- NOTE | 2016-06-21 17:31 | PDOC ---
PROGRESS NOTES Chief Complaint Chief Complaint Cholelithiasis ASSESSMENT AND PLAN: 1. Cholelithiasis: s/p ERCP w/ sphincterotomy 06/20; CCY today; recovering appropriately 2. Transaminitis: fluctuating some. most likely 2/2 to above. continue to monitor 3. UTI: cult NGTD. final read. empiric ceftriax 4. Dispo: anticipate D/C home in AM Vitals Vitals Vital Signs Date Time Temp Pulse Resp B/P Pulse Ox O2 Delivery O2 Flow Rate FiO2 06/21/16 16:25 16 99 Room Air 06/21/16 12:00 67 122/82 06/21/16 11:30 97.6 97.6 06/21/16 10:47 10 Physical Exam General: Alert, Oriented X3, Cooperative, No acute distress Heart: Regular rate, Normal S1, Normal S2, No murmurs Lungs: Clear Abdomen: Soft, Other (minimal pain. lap port sites covered) Extremities: No clubbing, No cyanosis Skin: No rashes, No breakdown Labs LABS Laboratory Tests Test 06/21/16 04:25 White Blood Count 4.8x10^3/uL (4.0-11.0) Red Blood Count 4.47x10^6/uL (3.50-5.40) Hemoglobin 12.8g/dL (12.0-15.5) Hematocrit 38.4% (36.0-47.0) Mean Corpuscular Volume 86fL (79-100) Mean Corpuscular Hemoglobin 29pg (25-35) Mean Corpuscular Hemoglobin Concent 33g/dL (31-37) Red Cell Distribution Width 13.0% (11.5-14.5) Platelet Count 344x10^3/uL (140-400) Neutrophils (%) (Auto) 44% (31-73) Lymphocytes (%) (Auto) 48% (24-48) Monocytes (%) (Auto) 7% (0-9) Eosinophils (%) (Auto) 1% (0-3) Basophils (%) (Auto) 0% (0-3) Neutrophils # (Auto) 2.1x10^3uL (1.8-7.7) Lymphocytes # (Auto) 2.3x10^3/uL (1.0-4.8) Monocytes # (Auto) 0.3x10^3/uL (0.0-1.1) Eosinophils # (Auto) 0.1x10^3/uL (0.0-0.7) Basophils # (Auto) 0.0x10^3/uL (0.0-0.2) Sodium Level 142mmol/L (136-145) Potassium Level 3.4mmol/L (3.5-5.1) Chloride Level 107mmol/L (98-107) Carbon Dioxide Level 26mmol/L (21-32) Anion Gap 9 (6-14) Blood Urea Nitrogen 3mg/dL (7-20) Creatinine 0.4mg/dL (0.6-1.0) Estimated GFR (Cockcroft-Gault) 196.1 BUN/Creatinine Ratio 8 (6-20) Glucose Level 81mg/dL (70-99) Calcium Level 8.6mg/dL (8.5-10.1) Total Bilirubin 0.4mg/dL (0.2-1.0) Aspartate Amino Transf (AST/SGOT) 248U/L (15-37) Alanine Aminotransferase (ALT/SGPT) 403U/L (14-59) Alkaline Phosphatase 387U/L (46-116) Total Protein 6.5g/dL (6.4-8.2) Albumin 3.1g/dL (3.4-5.0) Albumin/Globulin Ratio 0.9 (1.0-1.7) Amylase Level 34U/L (25-115) Lipase 99U/L (73-393) Review of Systems Review of Systems no N/V, min abd pain post surg HANS MONRELA MD Jun 21, 2016 17:31
--- NOTE | 2016-06-21 20:32 | OP ---
DATE OF SURGERY: 06/21/2016 PREOPERATIVE DIAGNOSES: Cholelithiasis, choledocholithiasis. POSTOPERATIVE DIAGNOSES: Cholelithiasis, choledocholithiasis. PROCEDURES: Laparoscopic cholecystectomy with intraoperative cholangiogram. SURGEON: Brent Castaneda M.D. ESTIMATED BLOOD LOSS: 50 mL. FLUIDS: 1000 mL. COMPLICATIONS: None. FINDINGS: Multiple gallstones. Intraoperative cholangiogram within normal limits, no evidence of retained common bile duct stones. INDICATIONS: A 25-year-old female who presents with complaints of epigastric right upper quadrant abdominal pain. Imaging had demonstrated evidence or concern for choledocholithiasis. She is status post ERCP with sphincterotomy. She presents for cholecystectomy. The patient and the patient's were informed of the risks, benefits, alternatives to procedure, risks including but not limited to bleeding, infection, damage to surrounding structures, risk of anesthesia, risk of an open procedure. The patient and patient's appeared to understand and their insightful questions were answered and they agreed to proceed. DESCRIPTION OF PROCEDURE: After obtaining informed consent, the patient was taken to the operating room, induced under general endotracheal anesthetic. The patient was prepped and draped in usual fashion in the anterior abdominal wall. A 0.5% Marcaine with epinephrine was injected in the supraumbilical area and incision was made using 15 blade scalpel. A 5 mm nonbladed trocar was introduced in the abdominal cavity under direct vision of laparoscope. Pneumoperitoneum was established. Additional 12 port was placed in the epigastrium, another 5 mm port was placed in the right upper quadrant, all under direct vision of the laparoscope. The abdominal cavity was explored. The liver was normal in appearance. Gallbladder was somewhat indurated, especially down near the cystic duct. The visualized portion of viscera normal in appearance. There was no evidence of trocar injury. The gallbladder was grasped. The triangle of Calot was exposed. The peritoneum overlying the cystic duct was taken down using blunt dissection. Circumferential dissection was performed of the cystic duct and cystic duct infundibulum junction. Critical view was obtained demonstrating the cystic duct and cystic artery as the only structures going to the gallbladder. Clips were placed on the cystic artery and clip was placed on the cystic duct infundibulum junction. Incision was made in the cystic duct using EndoShears. Cholangiogram catheter was introduced and cholangiogram was obtained. Cholangiogram demonstrated normal appearing hepatic ducts, normal appearing common bile duct, free extravasation into the duodenum. Cholangiogram catheter was removed. Multiple clips were placed on the cystic duct stump including Hem-o-louie and the cystic duct was divided. Gallbladder was taken off the gallbladder fossa sharply using electrocautery. Gallbladder was placed in EndoCatch bag, brought out through the epigastric port and passed off the field and sent to pathology for evaluation. The abdominal cavity was copiously irrigated with normal saline solution. There was no evidence of bleeding or other pathology at the time of closure. All ports removed under direct vision of laparoscope. There was no evidence of port site bleeding. Fascial defect in the epigastrium was reapproximated using interrupted 0 Vicryl stitch using Endo Close. All skin incisions were approximated with multiple interrupted 4-0 Monocryl in subcuticular fashion. Sterile dressing was placed over all wounds. The patient tolerated procedure well and was discharged to recovery room in stable condition. All counts correct. There were no immediate complications. BRENT CASTANEDA MD DR: MAYO/lynette JOB#: [id number] / [id number]
[2016-06-22] MEDS: IV RINGERS,LACTATED 1000ML 1,000 ML IV SCH ×3 (01:30→08:06)
[2016-06-22] MEDS: KETOROLAC TROMETHAMINE 30 MG/ML SYRINGE. IV PRN ×2 (01:33→08:07)
[2016-06-22 03:05] VITALS: BP 107/58
[2016-06-22 05:18] LABS: BASO % 0 % (0-3); EOS % 0 % (0-3); HEMOGLOBIN 12.2 g/dL (12.0-15.5); LYMPH # 2.1 x10^3/uL (1.0-4.8); LYMPH % 28 % (24-48); MEAN CORPUSCULAR HEMOGLOBIN 29 pg (25-35); MEAN CORPUSCULAR HGB CONC 34 g/dL (31-37); MEAN CORPUSCULAR VOLUME 86 fL (79-100); MONO % 7 % (0-9); NEUT % 65 % (31-73); PLATELET COUNT 345 x10^3/uL (140-400); RED BLOOD COUNT 4.19 x10^6/uL (3.50-5.40); RED CELL DISTRIBUTION WIDTH 12.7 % (11.5-14.5); WHITE BLOOD COUNT 7.7 x10^3/uL (4.0-11.0)
[2016-06-22 05:41] LABS: CALCIUM 8.9 mg/dL (8.5-10.1); CREATININE 0.4 mg/dL (0.6-1.0); GFR 196.1; POTASSIUM 3.8 mmol/L (3.5-5.1)
[2016-06-22 05:47] LABS: DIRECT BILIRUBIN 0.1 mg/dL (0.0-0.2); TOTAL BILIRUBIN 0.3 mg/dL (0.2-1.0); TOTAL PROTEIN 6.4 g/dL (6.4-8.2)
[2016-06-22 07:36] VITALS: BP 108/59
[2016-06-22] MEDS: DOCUSATE SODIUM 100 MG CAPSULE PO SCH (08:06)
[2016-06-22] MEDS: HYDROCODONE/APAP 5/325MG TABLET. PO PRN ×2 (08:07→12:51)
--- NOTE | 2016-06-22 08:26 | PDOC ---
SURGICAL PROGRESS NOTE Subjective tolerating diet pain controlled no nausea or emesis ambulating and urinating Vital Signs Vital Signs Date Time Temp Pulse Resp B/P Pulse Ox O2 Delivery O2 Flow Rate FiO2 06/22/16 08:07 16 99 06/22/16 07:36 97.9 72 108/59 Nasal Cannula 97.9 06/21/16 17:25 10.0 I&O Intake and Output 06/22/16 07:00 Intake Total 1960 ml Output Total 10 ml Balance 1950 ml Intake Oral 210 ml IV Total 950 ml Blood Product IV Normal Saline Flush 800 ml Estimated Blood Loss 10 ml # Voids 16 General: Alert, Oriented X3, Cooperative, No acute distress Abdomen: Soft, Other (lap dressings dry ) Labs Laboratory Tests Test 06/20/16 09:05 06/21/16 04:25 06/22/16 04:00 Total Bilirubin 0.4mg/dL (0.2-1.0) 0.4mg/dL (0.2-1.0) 0.3mg/dL (0.2-1.0) Direct Bilirubin 0.1mg/dL (0.0-0.2) 0.1mg/dL (0.0-0.2) Aspartate Amino Transf (AST/SGOT) 313U/L (15-37) 248U/L (15-37) 110U/L (15-37) Alanine Aminotransferase (ALT/SGPT) 353U/L (14-59) 403U/L (14-59) 268U/L (14-59) Alkaline Phosphatase 318U/L (46-116) 387U/L (46-116) 305U/L (46-116) Total Protein 6.3g/dL (6.4-8.2) 6.5g/dL (6.4-8.2) 6.4g/dL (6.4-8.2) Albumin 3.0g/dL (3.4-5.0) 3.1g/dL (3.4-5.0) 3.0g/dL (3.4-5.0) White Blood Count 4.8x10^3/uL (4.0-11.0) 7.7x10^3/uL (4.0-11.0) Red Blood Count 4.47x10^6/uL (3.50-5.40) 4.19x10^6/uL (3.50-5.40) Hemoglobin 12.8g/dL (12.0-15.5) 12.2g/dL (12.0-15.5) Hematocrit 38.4% (36.0-47.0) 36.0% (36.0-47.0) Mean Corpuscular Volume 86fL (79-100) 86fL (79-100) Mean Corpuscular Hemoglobin 29pg (25-35) 29pg (25-35) Mean Corpuscular Hemoglobin Concent 33g/dL (31-37) 34g/dL (31-37) Red Cell Distribution Width 13.0% (11.5-14.5) 12.7% (11.5-14.5) Platelet Count 344x10^3/uL (140-400) 345x10^3/uL (140-400) Neutrophils (%) (Auto) 44% (31-73) 65% (31-73) Lymphocytes (%) (Auto) 48% (24-48) 28% (24-48) Monocytes (%) (Auto) 7% (0-9) 7% (0-9) Eosinophils (%) (Auto) 1% (0-3) 0% (0-3) Basophils (%) (Auto) 0% (0-3) 0% (0-3) Neutrophils # (Auto) 2.1x10^3uL (1.8-7.7) 5.0x10^3uL (1.8-7.7) Lymphocytes # (Auto) 2.3x10^3/uL (1.0-4.8) 2.1x10^3/uL (1.0-4.8) Monocytes # (Auto) 0.3x10^3/uL (0.0-1.1) 0.5x10^3/uL (0.0-1.1) Eosinophils # (Auto) 0.1x10^3/uL (0.0-0.7) 0.0x10^3/uL (0.0-0.7) Basophils # (Auto) 0.0x10^3/uL (0.0-0.2) 0.0x10^3/uL (0.0-0.2) Sodium Level 142mmol/L (136-145) 141mmol/L (136-145) Potassium Level 3.4mmol/L (3.5-5.1) 3.8mmol/L (3.5-5.1) Chloride Level 107mmol/L (98-107) 105mmol/L (98-107) Carbon Dioxide Level 26mmol/L (21-32) 29mmol/L (21-32) Anion Gap 9 (6-14) 7 (6-14) Blood Urea Nitrogen 3mg/dL (7-20) 7mg/dL (7-20) Creatinine 0.4mg/dL (0.6-1.0) 0.4mg/dL (0.6-1.0) Estimated GFR (Cockcroft-Gault) 196.1 196.1 BUN/Creatinine Ratio 8 (6-20) Glucose Level 81mg/dL (70-99) 92mg/dL (70-99) Calcium Level 8.6mg/dL (8.5-10.1) 8.9mg/dL (8.5-10.1) Albumin/Globulin Ratio 0.9 (1.0-1.7) Amylase Level 34U/L (25-115) Lipase 99U/L (73-393) Laboratory Tests Test 06/22/16 04:00 White Blood Count 7.7x10^3/uL (4.0-11.0) Red Blood Count 4.19x10^6/uL (3.50-5.40) Hemoglobin 12.2g/dL (12.0-15.5) Hematocrit 36.0% (36.0-47.0) Mean Corpuscular Volume 86fL (79-100) Mean Corpuscular Hemoglobin 29pg (25-35) Mean Corpuscular Hemoglobin Concent 34g/dL (31-37) Red Cell Distribution Width 12.7% (11.5-14.5) Platelet Count 345x10^3/uL (140-400) Neutrophils (%) (Auto) 65% (31-73) Lymphocytes (%) (Auto) 28% (24-48) Monocytes (%) (Auto) 7% (0-9) Eosinophils (%) (Auto) 0% (0-3) Basophils (%) (Auto) 0% (0-3) Neutrophils # (Auto) 5.0x10^3uL (1.8-7.7) Lymphocytes # (Auto) 2.1x10^3/uL (1.0-4.8) Monocytes # (Auto) 0.5x10^3/uL (0.0-1.1) Eosinophils # (Auto) 0.0x10^3/uL (0.0-0.7) Basophils # (Auto) 0.0x10^3/uL (0.0-0.2) Sodium Level 141mmol/L (136-145) Potassium Level 3.8mmol/L (3.5-5.1) Chloride Level 105mmol/L (98-107) Carbon Dioxide Level 29mmol/L (21-32) Anion Gap 7 (6-14) Blood Urea Nitrogen 7mg/dL (7-20) Creatinine 0.4mg/dL (0.6-1.0) Estimated GFR (Cockcroft-Gault) 196.1 Glucose Level 92mg/dL (70-99) Calcium Level 8.9mg/dL (8.5-10.1) Total Bilirubin 0.3mg/dL (0.2-1.0) Direct Bilirubin 0.1mg/dL (0.0-0.2) Aspartate Amino Transf (AST/SGOT) 110U/L (15-37) Alanine Aminotransferase (ALT/SGPT) 268U/L (14-59) Alkaline Phosphatase 305U/L (46-116) Total Protein 6.4g/dL (6.4-8.2) Albumin 3.0g/dL (3.4-5.0) Problem List Problems Medical Problems: (1) Abdominal pain Status: Acute (2) Cholelithiasis Status: Acute (3) Liver function test abnormality Status: Acute Assessment/Plan s/p lap serina, ERCP sphincterotomy ok to DC FREDO with [facility]a 2 weeks Problems: GEORGES MELENDEZ APRN Jun 22, 2016 08:26
[2016-06-22 10:54] VITALS: BP 113/83
[2016-06-22] MEDS ORDERED: HYDR-2666 PO (11:34)
--- NOTE | 2016-06-23 23:16 | DS ---
DATE OF DISCHARGE: 06/22/2016 CHIEF COMPLAINT: Cholelithiasis, cholecystitis. HOSPITAL COURSE: The patient is a 25-year-old woman admitted with right upper quadrant pain, which was found to be due to cholelithiasis. She underwent ERCP with sphincterotomy on 06/20/2016. Cholecystectomy followed the next day. She tolerated both procedures without any difficulties and recovered appropriately. She was therefore discharged to home on the 06/22/2016. PHYSICAL EXAMINATION: VITAL SIGNS: Blood pressure of 122/82, heart rate of 67, respiratory rate of 16. She is afebrile. GENERAL: This was a well-nourished 25-year-old , alert and oriented, no acute distress. LUNGS: Clear. HEART: Regular rate and rhythm. ABDOMEN: Tenderness to palpation in the area of the laparoscopic ports and right upper quadrant. EXTREMITIES: Showed no edema. DISCHARGE DISPOSITION: To home. DISCHARGE CONDITION: Improved. DISCHARGE DIAGNOSES: Cholelithiasis, cholecystitis, status post cholecystectomy. DISCHARGE MEDICATIONS: Please refer to MAR. DISCHARGE INSTRUCTIONS: The patient will follow up with PCP in 1-[address] Villar in 2 weeks for postoperative check. HANS MONREAL MD DR: UR/nts JOB#: [id number] / [id number]
--- NOTE | 2016-06-24 16:35 | PATHOLOGY ---
PATHOLOGY REPORT * * * * * * * * FINAL DIAGNOSIS: Gallbladder, laparoscopic cholecystectomy: - Cholelithiasis. - Cholesterolosis. - Chronic cholecystitis. COMMENT: There is no evidence of malignancy. (AYANNAM:; d/t: 06/24/16) REPORT ELECTRONICALLY SIGNED BY: Lokesh Marquez M.D. DATE/TIME: 06/24/2016 16:35 * * * * * * * * GROSS PATHOLOGY: Received in formalin labeled "Franny Avila, gallbladder," is a 7.2 x 2.7 x 2.6 cm, intact gallbladder with blue-raphael serosal surfaces. Opening the gallbladder reveals a velvety, bile-stained mucosa with mild, diffuse cholesterolosis and an average wall thickness of 0.1 cm. Calculi are present displaying a yellow-green euceda and granular appearance, and no masses are noted grossly. Advertising S[employer]itor sections from the body and fundus are submitted along with the proximal margin in cassette A1. (CAA; 06/23/2016) INITIAL CPT CODE(S): A; 85104 Professional services performed [place] [place] [address] Technical services performed by [facility] at [address] [place] [address] [address] [address]. SPECIMEN(S) RECEIVED: A.Gallbladder CLINICAL HISTORY: Cholelithiasis PATIENT: FRANNY CLEARY /AGE: 812/23/1990 (Age: 25) PATIENT #: [id number] ALT CASE #: SPECIMEN COLLECTION DATE: 06/23/2016 SPECIMEN RECEIVED DATE: 06/23/2016 [facility] - [address] [place] [address] - PHONE: [phone] * * * END OF REPORT * * *
== END 2016-06-22 13:00 | disposition home or self-care (01) | DRG 418 ==
LOC: ER 22:55 → 6 SOUTH 06-20 00:59
PROVIDERS: ADMIT Internal Medicine; ATTEND Internal Medicine
PROC: BF131ZZ Fluoroscopy of Gallbladder and Bile Ducts using Low Osmolar Contrast (ICD-10-PCS; 2016-06-21)
PROC: 0FT44ZZ Resection of Gallbladder, Percutaneous Endoscopic Approach (ICD-10-PCS; principal; 2016-06-21 09:30)
DX: K80.64 Calculus of gallbladder and bile duct with chronic cholecystitis without obstruction (principal); N39.0 Urinary tract infection, site not specified; F41.9 Anxiety disorder, unspecified
CPT/HCPCS: 36415; 74330; 76001; 76705; 80048; 80053; 80076; 81001; 81025; 82150; 83690; 85027; 87086; 96361; 96374; 96375; C1726; C1757; C1782; J0330; J0690; J0696; J0780; J1100; J1885; J2270; J2405; J2704; J2710; J3010; J3490; J7030; J7040; J7120; Q9967; 99285-25